=== PATIENT | male | born 1935 | race Caucasian/White ===

== ENCOUNTER 2023-05-25 11:01 | Outpatient (CLI) | payer OTHER, SELFPAY ==
--- NOTE | 2023-05-25 11:25 | ECG_ITS ---
Measurements Intervals [place] Rate: 80 P: 35 MT: 170 QRS: -4 QRSD: 141 T: 146 QT: 415 QTc: 479 Interpretive Statements SINUS RHYTHM LEFT BUNDLE BRANCH BLOCK [120+ ms QRS DURATION, 80+ ms Q/S IN V1/V2, 85+ ms R IN I/aVL/V5/V6] ABNORMAL ECG NO PREVIOUS ECG AVAILABLE FOR COMPARISON Electronically Signed On 05-25-2023 13:36:55 MANAGER MOLECULAR by Flavio Lange M.D.
[2023-05-25 11:57] LABS: Anion Gap 10 mmol/L (8-16); Blood Urea Nitrogen 14 mg/dL (9-20); Calcium 9.2 mg/dL (8.4-10.2); Carbon Dioxide 29 mmol/L (22-30); Chloride 101 mmol/L (98-107); Estimated Glomerular Filt Rate > 60; Glucose 76 mg/dL (65-110); Potassium 3.2 mmol/L (3.4-5.0); Sodium 140 mmol/L (137-145)
== END 2023-05-25 11:02 | disposition home or self-care (01) ==
LOC: ANHSURGERY 11:07
PROVIDERS: Anesthesiology; PCP Internal Medicine; Visit Provider Urology
DX: I10 Essential (primary) hypertension (principal); Z79.899 Other long term (current) drug therapy; Z01.818 Encounter for other preprocedural examination; I44.7 Left bundle-branch block, unspecified
CPT/HCPCS: 36415; 80048; 93005

== ENCOUNTER 2023-05-30 02:52 | Day surgery (SDC) | payer OTHER, SELFPAY ==
[2023-05-24 08:28] VITALS: BMI 30.3
--- NOTE | 2023-05-24 09:19 | PC.NURSE ---
PRE-OP INSTRUCTIONS, PLEASE READ CAREFULLY Report to the Outpatient Waiting Room, entrance under the green pavilion located off [facility], at time _1 PM_ on date _05/30/23_. Planned Procedure Time: _3 PM_. Time changes happen often and if your time is changed the preop area will call you the afternoon before. - You and your visitor will be asked to self-screen and do not enter if you have any COVID symptoms. - A mask is optional within the hospital at this time. Patients may have clear liquids (water, carbonated beverages, clear teas, apple juice) until 3 hours prior to surgery (1200 NOON) with a maximum of 20 ounces. - No food from midnight until time of surgery Take the following medications with a SIP of water the morning of surgery: _ISOSORBIDE_ DO NOT STOP ANY OF YOUR OTHER PRESCRIPTION MEDICATIONS PRIOR TO SURGERY ?EXCEPT THE FOLLOWING Medications to discontinue per physician _PT STATS ALREADY STOPPING ASPIRIN 05/21/23_ Please no make-up, nail croatian, hairspray, perfume, deodorant, or body powder the day of surgery. No jewelry (including any body piercings) or valuables the day of surgery, leave them at home. Please take a shower or bath the night before, or the morning of, surgery with an antibacterial soap. Wear comfortable, loose fitting clothing. - Jewelry must be removed prior to entering the operating room. Rings and piercings that are not removed may be cut off. - The hospital will not accept responsibility for valuables. - Please leave all valuables, including medications, at home the day of surgery. If you are going home after surgery, a licensed trolley coach driver must drive you home. - NO public transportation without another adult if you receive anesthesia. - We recommend that an adult stay with you for 24 hours following discharge. - We also recommend that you do not drive, make important decision, drink alcoholic beverages, or take any drugs that were not prescribed by your health care provider for at least 24 hours after your discharge time. Follow any additional instructions given to you from your surgeon. If you or anyone in your household have experienced Covid symptoms in the past week, please notify your surgeon or the nurse liaison at the phone number below for possible testing. Telephone instructions given to _PATIENT_and asked if any additional questions and then verbalized understanding. Patient advised to call surgeon office or pre surgery nurse liaison [phone] if any additional questions.
[2023-05-30] VITALS (7 sets, daily range): BP systolic 139–182; BP diastolic 74–90; PULSE 70–100; RESP 14–17; TEMP 36.2–36.6; O2SAT 94–99
[2023-05-30] MEDS: ACETAMINOPHEN 500 MG TABLET 1000 MG PO (13:05)
[2023-05-30] MEDS: LACTATED RINGERS 1,000 ML 30 ML IV CONT (13:05)
--- NOTE | 2023-05-30 15:20 | WPDANESEPPF ---
Anes - Initial Pre Proc Eval Procedure: Operation Date: 05/30/23 15:00 Proposed Procedures p Circumcision - Refugio Gaytan MD Date/Time: 05/30/23 15:20 Surgeon: Refugio Gaytan MD Pre Op Diagnosis: phimosis Patient Data Age: 88 Gender: M Height: 1.75 m Weight: 90.3 kg Last Vital Signs Temp 36.2 C L 05/30/23 13:30 Pulse 96 05/30/23 13:30 Resp 14 05/30/23 13:30 BP 148/74 H 05/30/23 13:30 Pulse Ox 96 05/30/23 13:30 O2 Del Method Room Air 05/30/23 13:30 Allergies Allergy/AdvReac Type Severity Reaction Status Date / Time No Known Allergies Allergy Verified 05/30/23 13:35 Home Medications Medication Instructions Recorded Confirmed Type aspirin 81 mg tablet,delayed 81 mg PO DAILY 05/24/23 05/24/23 History release doxycycline hyclate 50 mg capsule 50 mg DAILY 05/24/23 05/24/23 History hydrochlorothiazide 25 mg tablet 25 mg DAILY 05/24/23 05/24/23 History isosorbide mononitrate 30 mg 30 mg PO DAILY 05/24/23 05/24/23 History tablet,extended release 24 hr losartan 50 mg tablet 50 mg DAILY 05/24/23 05/24/23 History omeprazole 20 mg capsule,delayed 20 mg DAILY 05/24/23 05/24/23 History release simvastatin 20 mg tablet 20 mg HS 05/24/23 05/24/23 History Patient hx anesthesia problems: none Family hx anesthesia problems: none Results Review: All pre-operative results and documents have been reviewed as part of the pre-operative evaluation. [facility] Past Medical History Medical History (Updated 05/30/23 @ 15:20 by Taurus Bird MD) HTN (hypertension) Obesity KARLY (obstructive sleep apnea) Social History Social History Smoking status: Never smoker Second hand tobacco smoke exposure: No Alcohol intake: never Substance use: never Substance use type: does not use Living arrangements: with family Spiritual care concerns: No Anes - Eval Final PreProcedure Day of Procedure 05/30/23 15:20 Patient weight: obese Heart: regular rate and rhythm Lungs: clear to auscultation Airway: Mallampati scale class II Neurological: alert and oriented Last oral intake: >/= 8 hours ASA classification: III Emergent: no Anesthetic plan: proceed Anesthesia type and monitoring: general LMA and standard monitoring Results Review: All pre-operative results and documents have been reviewed as part of the pre-operative evaluation. Informed Consent: The patient's anesthetic plan and its attendant risks and benefits were discussed with the patient/family/POA. Questions were solicited and answers provided to the satisfaction of the patient/family/POA.
--- NOTE | 2023-05-30 15:22 | WPDHPUPDATE1 ---
History and Physical Update Update Date/Time: 05/30/23 15:22 History and Physical has been reviewed, including an updated exam of the patient. There are NO changes in the patient's condition. Risks, benefits, and alternatives have been discussed and questions answered. Patient agrees to proceed with procedure.
[2023-05-30] MEDS: ceFAZolin 2 GM/D5W 50 ML 2 GM/50 ML BAG IVPB (15:35)
[2023-05-30] MEDS: BUPivacaine HCL 0.5% PF 30 ML VIAL INFILTRATE (15:55)
--- NOTE | 2023-05-30 16:43 | W.PM.PROC2 ---
Procedure Note - Detailed Date of Procedure 05/30/23 Pre-op Diagnosis phimosis Post-op Diagnosis Same Procedure Performed Circumcision Surgeon Refugio Gaytan MD Anesthesia General Indications Severe phimosis and unretractable foreskin Description of Procedure Informed consent was obtained. Patient the was taken to the operating room. He is given preoperative IV antibiotics. He was induced anesthesia. He was then prepped and draped in normal sterile fashion. A penile block was performed with 0.5% Marcaine without epinephrine. The foreskin was tight and on retractable. We therefore performed a dorsal slit to expose the glans. We then re-prepped with Betadine. This point, phimotic skin was excised and sent as specimen. Dartos layer was cauterized to achieve hemostasis. We then reapproximated the dartos layer with 3-0 Vicryl sutures. Four quadrant sutures of 3-0 chromic were used on skin edges. In between these sutures, we placed additional interrupted 4-0 chromic interrupted sutures. There was an excellent cosmetic result. A compressive dressing was placed. Patient was taken recovery room in stable condition Pathology Yes Complications No immediate complications Condition Stable Disposition PACU
[2023-05-30] MEDS: ONDANSETRON INJ 4 MG/2 ML VIAL IV PUSH (17:20)
== END 2023-05-30 18:38 | disposition home or self-care (01) ==
PROVIDERS: PCP Internal Medicine; Visit Provider Urology
PROC: (CPT 54161; principal; 2023-05-30 15:00)
DX: N47.1 Phimosis (principal); I10 Essential (primary) hypertension; G47.33 Obstructive sleep apnea (adult) (pediatric)
CPT/HCPCS: 54161; 36415; 80048; 88304; 93005; A9270; J0690; J1100; J2405; J2704; J3010; J7120